=== PATIENT | male | born 1975 | race Caucasian/White ===

== ENCOUNTER 2016-11-21 11:45 | Emergency (ER) | payer OTHER ==
--- NOTE | 2016-11-21 13:15 | ED ---
General Adult HPI - General Chief complaint: Back Pain/Injury Stated complaint: BACK INJURY, [facility] Time Seen by Provider: 11/21/16 13:07 Source: patient, RN notes reviewed Mode of arrival: ambulatory Limitations: no limitations - History of Present Illness Initial comments: Patient is 41-year-old male who presents emergency room today with a chief complaint of increased back pain over the last 4 days. He admits that 4 days ago he was at work he went to lift up a 5 gallon bucket of salt up over the truck bed. States he felt a pop into his lower back. He does admit to a spinal fusion in the past of L5-S1. Patient states that he's had increased pain the last few days. States had difficulty time with any movements of bending, turning, twisting. Patient does admit that he has had difficulty ambulating due to the pain in his back when he tries to stand upright. He denies any bowel or bladder incontinence or retention. Denies any saddle anesthesia. Denies any lumbar radiculopathy. Patient does admit that he's been using ibuprofen at home with some relief the symptoms. Does admit that symptoms seem to be somewhat improved but still not getting much better. Patient denies any recent fever, chills, shortness of breath, chest pain, abdominal pain, nausea or vomiting, numbness or tingling, dysuria or hematuria, constipation or diarrhea, headaches or visual changes, or any other complaints. - Related Data Home Medications Medication Instructions Recorded Confirmed Ibuprofen [Motrin] 400 mg PO Q6HR PRN 11/21/16 11/21/16 Previous Rx's Medication Instructions Recorded Cyclobenzaprine [Flexeril] 10 mg PO TID #20 tab 11/21/16 Ibuprofen [Motrin] 600 mg PO Q6HR PRN #40 day 11/21/16 Allergies Allergy/AdvReac Type Severity Reaction Status Date / Time Penicillins Allergy Rash/Hives Verified 11/21/16 13:17 Review of Systems ROS Statement: Those systems with pertinent positive or pertinent negative responses have been documented in the HPI. ROS Other: All systems not noted in ROS Statement are negative. Past Medical History Past Medical History: No Reported History History of Any Multi-Drug Resistant Organisms: None Reported Past Surgical History: Back Surgery, Orthopedic Surgery Past Psychological History: No Psychological Hx Reported Smoking Status: Current every day smoker Past Alcohol Use History: None Reported Past Drug Use History: None Reported General Exam - General Exam Comments Initial Comments: General: The patient is awake and alert, in no distress, and does not appear acutely ill. Neck: The neck is supple, there is no tenderness or JVD. Cardiovascular: There is a regular rate and rhythm. No murmur, rub or gallop is appreciated. Respiratory: Lungs are clear to auscultation, respirations are non-labored, breath sounds are equal. No wheezes, stridor, rales, or rhonchi. Gastrointestinal: Soft, non-distended, non-tender abdomen without masses or organomegaly noted. There is no rebound or guarding present. Back: Patient does have old surgical incision in the lower lumbar. Normal appearance or step-offs deformities. No tenderness over the sinus process. Sensations intact pulses equal bilaterally 2+. Strength 5/5. Musculoskeletal: Normal ROM, no tenderness. Strength 5/5. Sensation intact. Pulses equal bilaterally 2+. Neurological: A&O x 3. CN II-XII intact, There are no obvious motor or sensory deficits. Coordination appears grossly intact. Speech is normal. Skin: Skin is warm and dry and no rashes or lesions are noted. Psychiatric: Cooperative, appropriate mood & affect, normal judgment. Limitations: no limitations Course Vital Signs 11/21/16 12:42 Temperature 98.4 F Pulse Rate 88 Respiratory 18 Rate Blood Pressure 125/65 O2 Sat by Pulse 98 Oximetry Medical Decision Making - Medical Decision Making Patient's x-ray reviewed and shows stable findings. No acute abnormalities. No bowel or bladder incontinence or retention. No saddle anesthesia. No lumbar radiculopathy. Patient is advised follow-up with his orthopedic doctor. Advised return here to the emergency room if any symptoms increase or worsen or for any other concerns. Will be continued on anti-inflammatories and given musculoskeletal as a muscle laxer mimicking drowsy. Advised return for any other concerns. Disposition Clinical Impression: Acute low back pain Disposition: HOME SELF-CARE Condition: Good Instructions: Acute Low Back Pain (ED) Additional Instructions: Please use medication as discussed. Please follow-up with orthopedics in the next 2 days of symptoms have not improved. Please return to emergency room if the symptoms increase or worsen or for any other concerns. Prescriptions: Cyclobenzaprine [Flexeril] 10 mg PO TID #20 tab Ibuprofen [Motrin] 600 mg PO Q6HR PRN #40 day PRN Reason: Pain Referrals: None,Stated [Primary Care Provider] - 1-2 days Lam Acosta DO [Doctor of Osteopathic Medicine] - 1-2 days Time of Disposition: 14:22
--- NOTE | 2016-11-21 14:06 | XR ---
Lumbar spine HISTORY: Injury, pain 3 views of the lumbar spine and 4 images Patient is status post posterior lumbar fusion of L4-L5-S1. Laminectomy changes are present at L4. An terolisthesis L5-S1 is stable, there is loss of disc height with intervertebral spacing material. [place] s of disc height also present at L4-5. Lumbar vertebral bodies show preserved height and bone mineral ization. IMPRESSION: Stable postoperative changes.
[2016-11-21 14:29] VITALS: BP 143/84; PULSE 78; RESP 16; TEMP 98
== END 2016-11-21 14:30 | disposition home or self-care (01) ==
LOC: EC 11:45
DX: M54.5 Low back pain (principal); F17.200 Nicotine dependence, unspecified, uncomplicated; Z98.1 Arthrodesis status; Z88.0 Allergy status to penicillin; X50.0XXA Overexertion from strenuous movement or load, initial encounter; Y92.69 Other specified industrial and construction area as the place of occurrence of the external cause; Y99.0 Civilian activity done for income or pay
CPT/HCPCS: 72100; 99283

== ENCOUNTER 2017-02-18 09:04 | Emergency (ER) | payer OTHER ==
[2017-02-18 09:28] VITALS: BP 150/72; PULSE 91; RESP 18; TEMP 97.3
--- NOTE | 2017-02-18 09:41 | ED ---
ENT HPI - General Chief complaint: Dental/Oral Stated complaint: BACK AND DENTAL PAIN Time Seen by Provider: 02/18/17 09:32 Source: patient, RN notes reviewed Mode of arrival: ambulatory Limitations: no limitations - History of Present Illness Initial comments: 41-year-old male presents to the emergency Department chief complaint of left- sided upper jaw pain. Patient states she's had for the last week or so. Patient states he has appointment with Dr. Hinton on Thursday for the tooth. Patient states he does have chronic poor dentition. Patient states that he just was taking Motrin at home and it was not helping with this pains without that he should be evaluated. Patient also does complain of some back pain. Patient states that he was golfing he feels as if he pulled a muscle. Patient states there is no falls or trauma to the back. Patient states that he has a history of straining the start of the back in the past. Patient states Motrin is not helping with that either soap he was concerned. Patient states there is no other symptoms at this time.Patient denies any recent fever, chills, shortness of breath, chest pain, abdominal pain, nausea vomiting, numbness or tingling, dysuria or hematuria, constipation or diarrhea, headaches or visual changes, or any other current symptoms. - Related Data Home Medications Medication Instructions Recorded Confirmed Ibuprofen [Motrin] 400 mg PO Q6HR PRN 11/21/16 11/21/16 Previous Rx's Medication Instructions Recorded Cyclobenzaprine [Flexeril] 10 mg PO TID #20 tab 11/21/16 Ibuprofen [Motrin] 600 mg PO Q6HR PRN #40 day 11/21/16 Clindamycin [Cleocin] 450 mg PO Q8HR #90 capsule 02/18/17 Hydrocodone/Acetaminophen [[place] 1 each PO Q6HR PRN #20 tab 02/18/17 5-325] Orphenadrine [Norflex] 100 mg PO Q12H #10 tablet.er 02/18/17 Allergies Allergy/AdvReac Type Severity Reaction Status Date / Time Penicillins Allergy Rash/Hives Verified 02/18/17 09:28 Review of Systems ROS Statement: Those systems with pertinent positive or pertinent negative responses have been documented in the HPI. ROS Other: All systems not noted in ROS Statement are negative. Past Medical History Past Medical History: No Reported History History of Any Multi-Drug Resistant Organisms: None Reported Past Surgical History: Back Surgery, Orthopedic Surgery Past Psychological History: No Psychological Hx Reported Smoking Status: Current every day smoker Past Alcohol Use History: None Reported Past Drug Use History: None Reported General Exam Limitations: no limitations General appearance: alert, in no apparent distress Head exam: Present: atraumatic, normocephalic, normal inspection Expanded Ear exam: Present: normal external inspection Mouth exam: Present: normal external inspection Teeth exam: Present: other (For dentition throughout multiple fractured teeth. Tenderness along the left upper jaw line.) Throat exam: normal inspection Neck exam: Present: normal inspection. Absent: tenderness, meningismus, lymphadenopathy Respiratory exam: Present: normal lung sounds bilaterally. Absent: respiratory distress, wheezes, rales, rhonchi, stridor Cardiovascular Exam: Present: regular rate, normal rhythm, normal heart sounds. Absent: systolic murmur, diastolic murmur, rubs, gallop, clicks Back exam: Present: normal inspection, full ROM. Absent: tenderness, paraspinal tenderness, vertebral tenderness Neurological exam: Present: alert, oriented X3, CN II-XII intact Psychiatric exam: Present: normal affect, normal mood Skin exam: Present: warm, dry, intact, normal color. Absent: rash Course Vital Signs 02/18/17 09:25 Temperature 97.3 F L Pulse Rate 91 Respiratory 18 Rate Blood Pressure 150/72 O2 Sat by Pulse 100 Oximetry Medical Decision Making - Medical Decision Making 41-year-old male presents for dental pain as well as lumbar strain. Patient does have poor dentition and tenderness of the left upper jaw. The patient he medication as well as antibiotics. We discussed close follow-up with his doctor and return parameters outpatient's questions. He stated he understood any significant plan. All questions have been answered. The patient will be discharged home. Disposition Clinical Impression: Lumbar strain, Odontalgia Disposition: HOME SELF-CARE Condition: Stable Instructions: Toothache (ED), Low Back Strain (ED), Lower Back Exercises (ED) Additional Instructions: Please use medication as discussed. Please follow up with family doctor if symptoms have not improved over the next two days. Please return to the emergency room if your symptoms increase or worsen or for any other concerns. [facility] [place] [address] [place] [address] [phone] (existing clients only) For new clients: [phone] 1st consult: $50 (includes Xrays) Usually 30% less then private dentist for visits after. [employer] Have to pay $50 for Xrays anmd rest is covered. [phone] Prescriptions: Clindamycin [Cleocin] 450 mg PO Q8HR #90 capsule Hydrocodone/Acetaminophen [[place] 5-325] 1 each PO Q6HR PRN #20 tab PRN Reason: Pain Orphenadrine [Norflex] 100 mg PO Q12H #10 tablet.er Referrals: Otto Evans DO [STAFF PHYSICIAN] - 1-2 days Time of Disposition: 09:40
== END 2017-02-18 09:57 | disposition home or self-care (01) ==
LOC: EC 09:04
DX: S39.012A Strain of muscle, fascia and tendon of lower back, initial encounter (principal); K08.89 Other specified disorders of teeth and supporting structures; K03.81 Cracked tooth; F17.200 Nicotine dependence, unspecified, uncomplicated; Z88.0 Allergy status to penicillin; X58.XXXA Exposure to other specified factors, initial encounter; Y93.53 Activity, golf
CPT/HCPCS: 99283

== ENCOUNTER 2017-10-28 08:02 | Emergency (ER) | payer OTHER ==
[2017-10-28 08:14] VITALS: RESP 18; TEMP 97.4
[2017-10-28] MEDS ORDERED: CLINDAMYCIN 150 MG CAP PO STA (08:40)
--- NOTE | 2017-10-28 08:40 | ED ---
ENT HPI - General Chief complaint: Dental/Oral Stated complaint: dental pain Time Seen by Provider: 10/28/17 08:17 Source: patient, RN notes reviewed, old records reviewed Mode of arrival: ambulatory Limitations: no limitations - History of Present Illness Initial comments: This patient is a 42-year-old male presenting complaint of left upper dental pain for approximately one week. He reports that he has history of poor dentition and is going to [facility] to have his teeth removed. He reports that he's had no fever or chills. Denies any trismus. He reports that he is noticed some swelling over the left upper cheek. He reports that he has no difficulty breathing, or lower jaw swelling. Patient states that he has not been on any recent antibiotics. He's been taking Motrin and naproxen for pain. - Related Data Home Medications Medication Instructions Recorded Confirmed Ibuprofen [Motrin] 400 mg PO Q6HR PRN 11/21/16 11/21/16 Previous Rx's Medication Instructions Recorded Cyclobenzaprine [Flexeril] 10 mg PO TID #20 tab 11/21/16 Ibuprofen [Motrin] 600 mg PO Q6HR PRN #40 day 11/21/16 Clindamycin [Cleocin] 450 mg PO Q8HR #90 capsule 02/18/17 Hydrocodone/Acetaminophen [[place] 1 each PO Q6HR PRN #20 tab 02/18/17 5-325] Orphenadrine [Norflex] 100 mg PO Q12H #10 tablet.er 02/18/17 Acetaminophen-Codeine 300-30mg 1 tab PO Q6H PRN #20 tablet 10/28/17 [Tylenol #3] Clindamycin [Cleocin] 450 mg PO TID 7 Days capsule 10/28/17 Allergies Allergy/AdvReac Type Severity Reaction Status Date / Time Penicillins Allergy Rash/Hives Verified 10/28/17 08:13 Review of Systems ROS Statement: Those systems with pertinent positive or pertinent negative responses have been documented in the HPI. ROS Other: All systems not noted in ROS Statement are negative. Past Medical History Past Medical History: No Reported History History of Any Multi-Drug Resistant Organisms: None Reported Past Surgical History: Back Surgery, Orthopedic Surgery Past Psychological History: No Psychological Hx Reported Smoking Status: Current every day smoker Past Alcohol Use History: None Reported Past Drug Use History: None Reported General Exam - General Exam Comments Initial Comments: 42-year-old male. No acute distress. Limitations: no limitations General appearance: alert, in no apparent distress Head exam: Present: atraumatic, normocephalic, normal inspection Eye exam: Present: normal appearance, PERRL, EOMI. Absent: scleral icterus, conjunctival injection, periorbital swelling ENT exam: Present: normal exam, mucous membranes moist, other (Patient is very poor dentition. Patient has evidence of gingival swelling and irritation over molars 1415 and 13.) Neck exam: Present: normal inspection. Absent: tenderness, meningismus, lymphadenopathy Respiratory exam: Present: normal lung sounds bilaterally. Absent: respiratory distress, wheezes, rales, rhonchi, stridor Cardiovascular Exam: Present: regular rate, normal rhythm, normal heart sounds. Absent: systolic murmur, diastolic murmur, rubs, gallop, clicks Neurological exam: Present: alert, oriented X3, CN II-XII intact Psychiatric exam: Present: normal affect Skin exam: Present: warm, dry, intact, normal color. Absent: rash Course Vital Signs 10/28/17 08:12 Temperature 97.4 F L Pulse Rate 96 Respiratory 18 Rate Blood Pressure 137/80 O2 Sat by Pulse 100 Oximetry Medical Decision Making - Medical Decision Making Patient 42-year-old male chief complaint of left upper dental pain for approximately one week. It does appear the patient has residual irritation, no focal abscess noted at this time. However there is significant swelling over the cheek. He has had multiple dental caries within all of his teeth, but appears to be impacted and gum swelling over the molars and 13 1415. Patient will be started on Pen-Vee K and pain medicine. Discussed following up with dental clinic. Patient understands treatment plan will comply. Return parameters were discussed. Disposition Clinical Impression: Pain, dental, Dental infection Disposition: HOME SELF-CARE Condition: Good Instructions: Dental Abscess (ED) Additional Instructions: Patient advised to take the pain medicine and antibiotics as prescribed. Follow -up with dental clinic. Return to the emergency department if any alarming signs or symptoms occur. [facility] [address] [place] [address] [phone] (existing clients only) For new clients: [phone] 1st consult: $50 (includes Xrays) Usually 30% less then private dentist for visits after. [employer] Have to pay $50 for Xrays anmd rest is covered. [phone] Prescriptions: Acetaminophen-Codeine 300-30mg [Tylenol #3] 1 tab PO Q6H PRN #20 tablet PRN Reason: Pain Clindamycin [Cleocin] 450 mg PO TID 7 Days capsule Referrals: Ronnie Garcia Jr, [Primary Care Provider] - 1-2 days Time of Disposition: 08:38
[2017-10-28 08:57] VITALS: BP 132/69; PULSE 81
== END 2017-10-28 08:57 | disposition home or self-care (01) ==
LOC: EC 08:02
DX: K04.7 Periapical abscess without sinus (principal); F17.200 Nicotine dependence, unspecified, uncomplicated; Z88.0 Allergy status to penicillin
CPT/HCPCS: 99283

== ENCOUNTER 2020-07-13 08:47 | Emergency (ER) | payer OTHER ==
[2020-07-13 08:53] VITALS: BP 131/84; PULSE 88; RESP 18; TEMP 98
--- NOTE | 2020-07-13 09:20 | ED ---
Back Pain HPI - General Chief Complaint: Back Pain/Injury Stated Complaint: Back Pain Time Seen by Provider: 07/13/20 08:54 Source: patient, RN notes reviewed Limitations: no limitations - History of Present Illness Initial Comments: This a 45-year-old male presents emergency Department chief complaint of mid to lower back pain. Patient states this started at work yesterday states that he lifted up his lawn more bagged empty it and states that he felt a strain. Patient states he has a history of lumbar back issues in which she had surgery by Dr. Justin hooks 15 years ago patient denies any bowel bladder incontinence or retention or saddle anesthesias or lower shunted paresthesias. No difficulty walking but states it does increase his pain. Patient states that he twisted to his left. Patient took some ibuprofen and Aleve with no relief of the symptoms. - Related Data Home Medications Medication Instructions Recorded Confirmed Ibuprofen [Motrin] 400 mg PO Q6HR PRN 11/21/16 10/28/17 Previous Rx's Medication Instructions Recorded Acetaminophen-Codeine 300-30mg 1 tab PO Q6H PRN #20 tablet 10/28/17 [Tylenol #3] Clindamycin [Cleocin] 450 mg PO TID 7 Days capsule 10/28/17 Ibuprofen [Motrin] 600 mg PO Q8HR PRN #20 tab 07/13/20 Orphenadrine [Norflex] 100 mg PO Q12H #14 tablet.er 07/13/20 predniSONE 50 mg PO DAILY #5 tab 07/13/20 Allergies Allergy/AdvReac Type Severity Reaction Status Date / Time Penicillins Allergy Rash/Hives Verified 07/13/20 08:53 Review of Systems ROS Statement: Those systems with pertinent positive or pertinent negative responses have been documented in the HPI. ROS Other: All systems not noted in ROS Statement are negative. Past Medical History Past Medical History: No Reported History History of Any Multi-Drug Resistant Organisms: None Reported Past Surgical History: Back Surgery, Orthopedic Surgery Past Psychological History: No Psychological Hx Reported Smoking Status: Current every day smoker Past Alcohol Use History: None Reported Past Drug Use History: None Reported General Exam Limitations: no limitations General appearance: alert, in no apparent distress Head exam: Present: atraumatic, normocephalic, normal inspection Eye exam: Present: normal appearance, PERRL, EOMI. Absent: scleral icterus, conjunctival injection, periorbital swelling ENT exam: Present: normal exam, normal oropharynx, mucous membranes moist Neck exam: Present: normal inspection, full ROM. Absent: tenderness, meningismus, lymphadenopathy Respiratory exam: Present: normal lung sounds bilaterally. Absent: respiratory distress, wheezes, rales, rhonchi, stridor Cardiovascular Exam: Present: regular rate, normal rhythm, normal heart sounds. Absent: systolic murmur, diastolic murmur, rubs, gallop, clicks GI/Abdominal exam: Present: soft, normal bowel sounds. Absent: distended, tenderness, guarding, rebound, rigid Extremities exam: Present: normal inspection, full ROM, normal capillary refill, other (Lower extremity strength equal bilaterally, neurovascular intact equal: Equal warmth). Absent: tenderness, pedal edema, joint swelling, calf tenderness Back exam: Present: full ROM (Patient does have full range of motion reports moderate discomfort), tenderness (Mid to lower thoracic vertebral and paraspinal), muscle spasm, paraspinal tenderness, vertebral tenderness. Absent: CVA tenderness (R), CVA tenderness (L) Neurological exam: Present: alert, oriented X3, normal gait (Patient ambulated in the room), reflexes normal. Absent: motor sensory deficit Skin exam: Present: warm, dry, intact, normal color. Absent: rash Course Vital Signs 07/13/20 08:48 Temperature 98.0 F Pulse Rate 88 Respiratory 18 Rate Blood Pressure 131/84 O2 Sat by Pulse 98 Oximetry Medical Decision Making - Medical Decision Making 45-year-old male presented for thoracic back pain x-rays unremarkable. Patient has no red flag symptoms. Patient's symptoms are consistent with a thoracic strain. Conservative treatment will be initiated patient will have close follow-up and return parameters were discussed. Disposition Clinical Impression: Thoracic back pain, Back strain Disposition: HOME SELF-CARE Condition: Stable Instructions (If sedation given, give patient instructions): Thoracic Back Strain (ED) Additional Instructions: Please return to the Emergency Department if symptoms worsen or any other concerns. Prescriptions: Ibuprofen [Motrin] 600 mg PO Q8HR PRN #20 tab PRN Reason: Pain Orphenadrine [Norflex] 100 mg PO Q12H #14 tablet.er predniSONE 50 mg PO DAILY #5 tab Is patient prescribed a controlled substance at d/c from ED?: No Referrals: Ronnie Garcia Jr, [Primary Care Provider] - 1-2 days Lam Acosta DO [Doctor of Osteopathic Medicine] - 1-2 days Time of Disposition: 09:51
--- NOTE | 2020-07-13 09:28 | XR ---
Thoracic spine HISTORY: Pain 4 views of the thoracic spine Thoracic vertebral bodies show preserved height, near anatomic alignment, and bone mineralization is normal. Mild spinal curvature could be positional. Disc spaces are maintained. No paraspinal mass. 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 IMPRESSION: No fracture or subluxation.
[2020-07-13] MEDS ORDERED: ACET/COD 300 MG/30 MG STARTER PACK 6 TAB BTL PO STA (09:51)
== END 2020-07-13 10:15 | disposition home or self-care (01) ==
LOC: EC 08:47
DX: S39.012A Strain of muscle, fascia and tendon of lower back, initial encounter (principal); M54.6 Pain in thoracic spine; F17.200 Nicotine dependence, unspecified, uncomplicated; Z88.0 Allergy status to penicillin; X50.0XXA Overexertion from strenuous movement or load, initial encounter; Y92.69 Other specified industrial and construction area as the place of occurrence of the external cause; Y99.0 Civilian activity done for income or pay
CPT/HCPCS: 72070; 99283

== ENCOUNTER 2020-11-19 20:45 | Emergency (ER) | payer OTHER ==
[2020-11-19 21:00] VITALS: RESP 18; TEMP 97.9
[2020-11-19] MEDS ORDERED: ACETAMINOPHEN TAB 325 MG TAB PO STA (21:32)
--- NOTE | 2020-11-19 21:36 | ED ---
General Adult HPI - General Chief complaint: Abdominal Pain Stated complaint: Abdominal Pain Time Seen by Provider: 11/19/20 21:15 Source: patient, RN notes reviewed Mode of arrival: ambulatory Limitations: no limitations - History of Present Illness Initial comments: Patient is a 45-year-old male that presents to emergency room with right testicle pain. He noted it spent on and off for last 4 days were comes and goes. He noted that the pain currently is a 9 out of 10 with no relief from Motrin at home. He notes that the pain isn't produced by any certain movement or body position it is comes and goes. She denied any sexual activity with any new partners, he is in a monogamous relationship and is faithful to his . She denied any nausea vomiting diarrhea constipation fever fatigue chills dysuria blood in his urine, discharge. - Related Data Home Medications Medication Instructions Recorded Confirmed Buprenorphine HCl/Naloxone HCl 0.5 - 1 film SUBLINGUAL BID 11/19/20 11/19/20 [Suboxone 8 mg-2 mg Sl Film] Allergies Allergy/AdvReac Type Severity Reaction Status Date / Time Penicillins Allergy Rash/Hives Verified 11/19/20 22:14 Review of Systems ROS Statement: Those systems with pertinent positive or pertinent negative responses have been documented in the HPI. ROS Other: All systems not noted in ROS Statement are negative. Past Medical History Past Medical History: No Reported History History of Any Multi-Drug Resistant Organisms: None Reported Past Surgical History: Back Surgery, Orthopedic Surgery Past Psychological History: No Psychological Hx Reported Smoking Status: Current every day smoker Past Alcohol Use History: None Reported Past Drug Use History: None Reported General Exam Limitations: no limitations General appearance: alert, in no apparent distress Head exam: Present: atraumatic, normocephalic, normal inspection Eye exam: Present: normal appearance, PERRL, EOMI. Absent: scleral icterus, conjunctival injection, periorbital swelling ENT exam: Present: normal exam, mucous membranes moist Neck exam: Present: normal inspection. Absent: tenderness, meningismus, lymphadenopathy Respiratory exam: Present: normal lung sounds bilaterally. Absent: respiratory distress, wheezes, rales, rhonchi, stridor Cardiovascular Exam: Present: regular rate, normal rhythm, normal heart sounds. Absent: systolic murmur, diastolic murmur, rubs, gallop, clicks GI/Abdominal exam: Present: soft, normal bowel sounds. Absent: distended, tenderness, guarding, rebound, rigid exam: Present: normal inspection, testicular tenderness (Right testicle), circumcision. Absent: urethral discharge, scrotal swelling Extremities exam: Present: normal inspection, full ROM, normal capillary refill. Absent: tenderness, pedal edema, joint swelling, calf tenderness Neurological exam: Present: alert, oriented X3, CN II-XII intact Psychiatric exam: Present: normal affect, normal mood Skin exam: Present: warm, dry, intact, normal color. Absent: rash Course Vital Signs 11/19/20 20:58 Temperature 97.9 F Pulse Rate 82 Respiratory 18 Rate Blood Pressure 132/80 O2 Sat by Pulse 97 Oximetry Medical Decision Making - Medical Decision Making 45-year-old male complaining of right testicle pain. Skull ultrasound, 650 mg of Tylenol, and urinalysis ordered. Ultrasound negative for any acute process, did show bilateral hydrocele and a small left-sided varicocele. Case discussed with Dr. Robles, patient discharged home with follow-up to urologist. - Lab Data Lab Results 11/19/20 Range/Units 21:47 Urine Color Light Yellow Urine Appearance Clear (Clear) Urine pH 7.0 (5.0-8.0) Ur Specific [place] 1.012 (1.001-1.035) Urine Protein Negative (Negative) Urine Glucose (UA) Negative (Negative) Urine Ketones Negative (Negative) Urine Blood Negative (Negative) Urine Nitrite Negative (Negative) Urine Bilirubin Negative (Negative) Urine Urobilinogen <2.0 (<2.0) mg/dL Ur Leukocyte Esterase Negative (Negative) - Radiology Data Radiology results: report reviewed, image reviewed Presents of hydroceles: Right measures 1.61.50.7 cm, left measures 1.00.62.2 cm's. Presence of varicoceles: Vessels measure up to 2 mm on the left side. There are bilateral hydroceles. There is right-sided small epididymal cyst. No evidence of testicular torsion or mass. Disposition Clinical Impression: Hydrocele in adult, Varicocele Disposition: HOME SELF-CARE Condition: Stable Instructions (If sedation given, give patient instructions): Hydrocele (ED), Testicle Pain (ED) Additional Instructions: Please return to the Emergency Department if symptoms worsen or any other concerns. Follow-up with urology in 2-4 days Follow-up with primary care in 3-5 days. [id number] pain medication for symptom control. Is patient prescribed a controlled substance at d/c from ED?: No Referrals: Ronnie Garcia Jr, DO [Primary Care Provider] - 1-2 days Deonte Leach MD [STAFF PHYSICIAN] - 1-2 days Time of Disposition: 22:54
[2020-11-19 22:12] LABS: Appearance,Urine Clear (Clear); Bilirubin,Urine Negative (Negative); Blood,Urine Negative (Negative); Color,Urine Light Yellow; Glucose,Urine (UA) Negative (Negative); Ketones,Urine Negative (Negative); Leukocyte Esterase,Urine Negative (Negative); Nitrite,Urine Negative (Negative); Protein,Urine Negative (Negative); Specific Gravity,Urine 1.012 (1.001-1.035); Urobilinogen,Urine <2.0 mg/dL (<2.0)
--- NOTE | 2020-11-19 22:42 | US ---
EXAMINATION TYPE: US scrotum with doppler. Grayscale and color Doppler Duplex imaging performed of adriane burnett scrotum. DATE OF EXAM: 11/19/2020 COMPARISON: NONE CLINICAL HISTORY: Right testicle pain. Right testicular pain x 4 days. EXAM MEASUREMENTS: TESTICLES: Right Testicle: 5.1 x 2.9 x 2.5 cm Left Testicle: 5.3 x 3.0 x 2.8 cm EPIDIDYMIS HEAD: Right Epididymis: 1.2 x 1.1 x 1.2 cm Left Epididymis: 0.9 x 1.9 x 1.5 cm Anechoic area seen in right epididymal head: 0.4 x 0.3 x 0.4 cm. Right epididymis appears heterogeneo us. Left epididymis appears slightly heterogeneous. Doppler performed to assess for testicular vascularity; bilateral color flow and waveforms are seen. Presence of hydroceles: Right measures 1.6 x 1.5 x 0.7 cm. Left measures 1.0 x 0.6 x 2.2 cm. Presence of varicoceles: Vessels measure up to 2 mm on left side. IMPRESSION: There are mild bilateral hydroceles. There is right-sided small epididymal cyst. No evidence of testi cular torsion or mass.
[2020-11-19 23:05] VITALS: BP 128/82; PULSE 77
== END 2020-11-19 23:05 | disposition home or self-care (01) ==
LOC: EC 20:45
DX: N43.3 Hydrocele, unspecified (principal); I86.1 Scrotal varices; F17.200 Nicotine dependence, unspecified, uncomplicated
CPT/HCPCS: 76870; 81003; 93975; 99284

== ENCOUNTER 2023-07-14 00:40 | Inpatient (IN) | payer BC, MEDICAID, OTHER ==
--- NOTE | 2023-07-14 01:03 | ED ---
Psych HPI - General Source: patient, RN notes reviewed Mode of arrival: ambulatory Limitations: no limitations <Carlos Enrique Sood - Last Filed: 07/14/23 01:02> <Daniel Carbone - Last Filed: 07/14/23 15:38> - General Chief Complaint: Psychiatric Symptoms Stated Complaint: Mental health Time Seen by Provider: 07/14/23 00:48 - History of Present Illness Initial Comments: 48-year-old male presents emergency Department with chief complaint of depression, suicidal ideation. Patient states that this has been increasing recently. Patient states he does not have current plan to harm himself. His eyes any prior suicide attempts. Patient is currently on Suboxone but denies any illicit drug use, patient denies any occult abuse has no physical complaints. (Carlos Enrique Sood) - Related Data Home Medications Medication Instructions Recorded Confirmed Buprenorphine HCl/Naloxone HCl 1 film SUBLINGUAL DIRECTED PRN 11/19/20 07/14/23 [Suboxone 8 mg-2 mg Sl Film] Allergies Allergy/AdvReac Type Severity Reaction Status Date / Time Penicillins Allergy Rash/Hives Verified 07/14/23 15:20 Review of Systems ROS Other: All systems not noted in ROS Statement are negative. <Carlos Enrique Sood - Last Filed: 07/14/23 01:02> ROS Other: All systems not noted in ROS Statement are negative. <Daniel Carbone - Last Filed: 07/14/23 15:38> ROS Statement: Those systems with pertinent positive or pertinent negative responses have been documented in the HPI. Past Medical History Past Medical History: No Reported History History of Any Multi-Drug Resistant Organisms: None Reported Past Surgical History: Back Surgery, Orthopedic Surgery Past Psychological History: No Psychological Hx Reported Smoking Status: Current every day smoker Past Alcohol Use History: None Reported Past Drug Use History: None Reported <Carlos Enrique Sood - Last Filed: 07/14/23 01:02> General Exam Limitations: no limitations General appearance: alert, in no apparent distress Head exam: Present: atraumatic, normocephalic, normal inspection Eye exam: Present: normal appearance, PERRL, EOMI. Absent: scleral icterus, conjunctival injection, periorbital swelling ENT exam: Present: normal exam, normal oropharynx, mucous membranes moist Neck exam: Present: normal inspection, full ROM. Absent: tenderness, meningismus, lymphadenopathy Respiratory exam: Present: normal lung sounds bilaterally. Absent: respiratory distress, wheezes, rales, rhonchi, stridor Cardiovascular Exam: Present: regular rate, normal rhythm, normal heart sounds. Absent: systolic murmur, diastolic murmur, rubs, gallop, clicks GI/Abdominal exam: Present: soft, normal bowel sounds. Absent: distended, tenderness, guarding, rebound, rigid Neurological exam: Present: alert, oriented X3 Psychiatric exam: Present: depressed, flat affect Skin exam: Present: warm, dry, intact, normal color. Absent: rash <Carlos Enrique Sood - Last Filed: 07/14/23 01:02> Course Vital Signs 07/14/23 07/14/23 00:44 14:04 Temperature 97.7 F Pulse Rate 92 75 Respiratory 18 16 Rate Blood Pressure 112/66 106/55 O2 Sat by Pulse 98 97 Oximetry Medical Decision Making <Daniel Carbone - Last Filed: 07/14/23 15:38> - Medical Decision Making Was pt. sent in by a medical professional or institution ([facility] Agrawal, [facility], urgent care, hospital, or care home...) When possible be specific @ -No Did you speak to anyone other than the patient for history (EMS, parent, family, police, friend...)? What history was obtained from this source @ -No Did you review nursing and triage notes (agree or disagree)? Why? @ -I reviewed and agree with nursing and triage notes Were old charts reviewed (outside hosp., previous admission, EMS record, old EKG, old radiological studies, urgent care reports/EKG's, care home records)? Report findings @ -No old charts were reviewed Differential Diagnosis (chest pain, altered mental status, abdominal pain women, abdominal pain men, vaginal bleeding, weakness, fever, dyspnea, syncope, headache, dizziness, GI bleed, back pain, seizure, CVA, palpatations, mental health, musculoskeletal)? @ -Differential Mental Health Depression, anxiety, bipolar, psychosis, schizophrenia, borderline personality, situational depression, adjustment disorder, behavioral disorder, brain tumor, malingering, substance abuse, encephalopathy, medication reaction, dementia, hypothyroidism, degenerative neurologic disorder, lupus.... This is not meant to be all-inclusive list EKG interpreted by me (3pts min.). @ -As above X-rays interpreted by me (1pt min.). @ -None done CT interpreted by me (1pt min.). @ -None done U/S interpreted by me (1pt. min.). @ -None done What testing was considered but not performed or refused? (CT, X-rays, U/S, labs)? Why? @ -None What meds were considered but not given or refused? Why? @ -None Did you discuss the management of the patient with other professionals (professionals i.e. , PA, [facility] [employer], lab, RT, psych nurse, social contact worker, funeral home general manager, teacher, hearing officer, piano case and bench assembler)? Give summary @ -Case was discussed with mental health nurse Yola with plans for admission Was smoking cessation discussed for >3mins.? @ -No Was critical care preformed (if so, how long)? @ -No Were there social determinants of health that impacted care today? How? (Homelessness, low income, unemployed, alcoholism, drug addiction, transportation, low edu. Level, literacy, decrease access to med. care, group home, rehab)? @ -No Was there de-escalation of care discussed even if they declined (Discuss DNR or withdrawal of care, Hospice)? DNR status @ -No What co-morbidities impacted this encounter? (DM, HTN, Smoking, COPD, CAD, Cancer, CVA, ARF, Chemo, Hep., AIDS, mental health diagnosis, sleep apnea, morbid obesity)? @ -None Was patient admitted / discharged? Hospital course, mention meds given and route, prescriptions, significant lab abnormalities, going to OR and other pertinent info. @ -Patient reevaluated by myself. Patient amiss to be depressed with suicidal thoughts. Patient has not been sleeping well. Patient will be admitted for mental health care. Patient currently is not on any medications for depression. Undiagnosed new problem with uncertain prognosis? @ -No Drug Therapy requiring intensive monitoring for toxicity (Heparin, Nitro, Insulin, Cardizem)? @ -No Were any procedures done? @ -No Diagnosis/symptom? @ -Depression Acute, or Chronic, or Acute on Chronic? @ -Acute Uncomplicated (without systemic symptoms) or Complicated (systemic symptoms)? @ -default Side effects of treatment? @ -No Exacerbation, Progression, or Severe Exacerbation? @ -No Poses a threat to life or bodily function? How? (Chest pain, USA, ME, pneumonia, PE, COPD, DKA, ARF, appy, cholecystitis, CVA, Diverticulitis, Homicidal, Suicidal, threat to staff... and all critical care pts) @ -No (Daniel Carbone) - Lab Data Lab Results 07/14/23 Range/Units 01:23 Urine Opiates Screen Not Detected (NotDetected) Ur Oxycodone Screen Not Detected (NotDetected) Urine Methadone Screen Not Detected (NotDetected) Ur Propoxyphene Screen Not Detected (NotDetected) Ur Barbiturates Screen Not Detected (NotDetected) U Tricyclic Antidepress Not Detected (NotDetected) Ur Phencyclidine Scrn Not Detected (NotDetected) Ur Amphetamines Screen Detected H (NotDetected) U Methamphetamines Scrn Detected H (NotDetected) U Benzodiazepines Scrn Not Detected (NotDetected) Urine Cocaine Screen Not Detected (NotDetected) U Marijuana (THC) Screen Not Detected (NotDetected) Disposition <Carlos Enrique Sood - Last Filed: 07/14/23 01:02> Is patient prescribed a controlled substance at d/c from ED?: No Time of Disposition: 15:38 <Daniel Carbone - Last Filed: 07/14/23 15:38> Clinical Impression: Depression Disposition: TRANSFER TO PSYCH HOSP/UNIT Referrals: None,Stated [Primary Care Provider] - 1-2 days
[2023-07-14 01:46] LABS: Cocaine Screen,Urine Not Detected (NotDetected); Phencyclidine Screen,Urine Not Detected (NotDetected); Urn Cannabinoid Scrn Not Detected (NotDetected)
[2023-07-14 01:47] LABS: Amphetamine Screen,Urine Detected (NotDetected); Barbiturate Screen,Urine Not Detected (NotDetected); Benzodiazepines Screen,Urine Not Detected (NotDetected); Methadone Screen, Urine Not Detected (NotDetected); Opiate Screen,Urine Not Detected (NotDetected); Oxycodone Screen, Urine Not Detected (NotDetected); Tricyclic Antidepressant,Urine Not Detected (NotDetected)
[2023-07-14] MEDS ORDERED: MAGNESIUM HYDROXIDE 2,400 MG/30 ML CUP PO PRN (20:20)
[2023-07-14] MEDS ORDERED: HALOPERIDOL LACTATE 5 MG/ML 1 ML VIAL IM PRN (20:20)
[2023-07-14] MEDS ORDERED: LORazepam 1 MG TAB PO PRN (20:20)
[2023-07-14] MEDS ORDERED: IBUPROFEN 600 MG TAB PO PRN (20:20)
[2023-07-14] MEDS ORDERED: ACETAMINOPHEN TAB 325 MG TAB PO PRN (20:20)
[2023-07-14] MEDS ORDERED: LORazepam 2 MG/ML INJ IM PRN (20:20)
[2023-07-14] MEDS ORDERED: haloperidoL 5 MG TAB PO PRN (20:20)
[2023-07-14] MEDS ORDERED: MAG HYDROX/AL HYDROX/SIMETH 30 ML CUP PO PRN (20:20)
--- NOTE | 2023-07-15 00:58 | P.CONS ---
History of Present Illness - Reason for Consult Consult date: 07/15/23 - History of Present Illness The patient is a 48-year-old male with a PMH of polysubstance abuse and tobacco abuse who presents to the emergency room with complaints of depression and suicidal ideation. The patient was admitted to the mental health unit where he was seen and evaluated. Patient reports that he has been struggling with his mental health ever since his recent divorce. He has been living in his truck and was contemplating suicide. He reports smoking three-quarter packs of cigarettes daily. Denied any alcohol use. Reports a long-standing history of substance use but that he has been sober for the past several months. Denied any physical complaints at the time of interview. Denied experiencing chest discomfort, shortness of breath, fever, chills, cough, nausea, vomiting, abdominal pain, diarrhea. The patient's urine toxicology however was positive for methamphetamines. Review of systems: Pertinent positives and negatives as discussed in HPI, a complete review of systems was performed and all other systems are negative. Physical examination: General: non toxic, no distress, appears at stated age, normal weight Derm: no unusual rashes/lesions, no unusual ecchymoses, warm, dry Head: atraumatic, normocephalic, symmetric Eyes: EOMI, no lid lag, anicteric sclera ENT: Nose and ears atraumatic, no thrush, no pharyngeal erythema Neck: trachea midline, supple Mouth: no lip lesion, mucus membranes moist Cardiovascular: S1S2 reg, no murmur, no edema Lungs: CTA bilateral, no rhonchi, no rales , no accessory muscle use Abdominal: soft, nontender to palpation, no guarding Ext: no gross muscle atrophy, no contractures, Neuro: No gross focal neuro deficits noted Psych: Alert, oriented, appropriate affect Assessment: Methamphetamine abuse Depression and suicidal ideation Tobacco abuse Imaging: None performed Data Review: Urine tox positive for methamphetamine and amphetamines with coronavirus PCR negative Plan: Advised on the importance of cessation from substance use Defer management of depression and suicidal ideation to the primary psychiatry service Thank you for allowing us to participate in the care of this patient. We will follow peripherally. Do not hesitate to contact us with questions. Someone can be reached from the [facility] hospitalist group at all hours of the day at [phone]. Past Medical History Past Medical History: No Reported History History of Any Multi-Drug Resistant Organisms: None Reported Past Surgical History: Back Surgery, Orthopedic Surgery Past Psychological History: No Psychological Hx Reported Smoking Status: Current every day smoker Past Alcohol Use History: None Reported Past Drug Use History: Methamphetamine, Prescription Drug Abuse Additional Drug Use History / Comment(s): pt reports that he became addicted to prescribed pain medications following his back surgery. pt states that he is currently taking Suboxone and that it is prescribed to him; pt has not had Suboxone filled since 2020. pt also reports that he smoked methamphetamine recently. pt states that he smoked a "bubble" a few days ago and that he uses "once every couple of weeks." Medications and Allergies Home Medications Medication Instructions Recorded Confirmed Type Buprenorphine HCl/Naloxone HCl 1 film SUBLINGUAL DIRECTED PRN 11/19/20 07/14/23 History [Suboxone 8 mg-2 mg Sl Film] Allergies Allergy/AdvReac Type Severity Reaction Status Date / Time Penicillins Allergy Rash/Hives Verified 07/14/23 15:20 Physical Exam Vitals: Vital Signs Temp Pulse Pulse Resp BP BP Pulse Ox 07/14/23 20:41 98.0 F 56 L 14 123/69 98 07/14/23 14:04 75 16 106/55 97 Intake and Output 07/14/23 07/14/23 07/15/23 14:59 22:59 06:59 Other: Weight 63.049 kg Results Labs: Abnormal Lab Results - Last 24 Hours (Table) 07/14/23 Range/Units 01:23 Ur Amphetamines Screen Detected H (NotDetected) U Methamphetamines Scrn Detected H (NotDetected)
[2023-07-15] MEDS: NICOTINE 14MG/24HR PATCH TRANSDERM SCH ×2 (10:07→16:54)
[2023-07-15 13:18] LABS: Anisocytosis Slight; Basophils % (A) 0 %; Eosinophils # (A) 0.2 k/uL (0-0.7); Eosinophils % (A) 3 %; HCT 46.5 % (39.0-53.0); HGB 15.2 gm/dL (13.0-17.5); Lymphocytes # (A) 1.5 k/uL (1.0-4.8); Lymphocytes % (A) 18 %; MCH 27.6 pg (25.0-35.0); MCHC 32.7 g/dL (31.0-37.0); MCV 84.3 fL (80.0-100.0); Mean Platelet Volume 7.2; Monocytes # (A) 0.3 k/uL (0-1.0); Monocytes % (A) 4 %; Neutrophils # (A) 6.4 k/uL (1.3-7.7); Neutrophils % (A) 75 %; Platelet Count 394 k/uL (150-450); RBC 5.52 m/uL (4.30-5.90); WBC 8.6 k/uL (3.8-10.6)
[2023-07-15 13:34] LABS: ALT 19 U/L (4-49); AST 23 U/L (17-59); African American GFR (CKD) >90 (>60 ml/min/1.73 sqM); Albumin 4.3 g/dL (3.5-5.0); Alkaline Phosphatase 48 U/L (38-126); Anion Gap 8 mmol/L; Blood Urea Nitrogen 10 mg/dL (9-20); Calcium 9.6 mg/dL (8.4-10.2); Carbon Dioxide 25 mmol/L (22-30); Chloride 105 mmol/L (98-107); Glucose 91 mg/dL (74-99); Non-African American GFR(CKD) >90 (>60 ml/min/1.73 sqM); Potassium 4.5 mmol/L (3.5-5.1); Sodium 138 mmol/L (137-145); Total Bilirubin 1.1 mg/dL (0.2-1.3); Total Protein 6.8 g/dL (6.3-8.2)
--- NOTE | 2023-07-15 14:24 | P.HP ---
Psychiatric H&P - . H&P Date: 07/15/23 History & Physical: Allergies Allergy/AdvReac Type Severity Reaction Status Date / Time Penicillins Allergy Rash/Hives Verified 07/14/23 15:20 Vital Signs Temp 98.0 F 07/14/23 20:41 Pulse 56 L 07/14/23 20:41 Resp 14 07/14/23 20:41 BP 123/69 07/14/23 20:41 Pulse Ox 98 07/14/23 20:41 FiO2 Intake & Output 07/14/23 07/15/23 07/15/23 18:59 06:59 18:59 Weight 63.049 kg Laboratory Last Values WBC 8.6 k/uL (3.8-10.6) 07/15/23 12:49 RBC 5.52 m/uL (4.30-5.90) 07/15/23 12:49 Hgb 15.2 gm/dL (13.0-17.5) 07/15/23 12:49 Hct 46.5 % (39.0-53.0) 07/15/23 12:49 MCV 84.3 fL (80.0-100.0) 07/15/23 12:49 MCH 27.6 pg (25.0-35.0) 07/15/23 12:49 MCHC 32.7 g/dL (31.0-37.0) 07/15/23 12:49 RDW 17.0 % (11.5-15.5) H 07/15/23 12:49 Plt Count 394 k/uL (150-450) 07/15/23 12:49 MPV 7.2 07/15/23 12:49 Neutrophils % 75 % 07/15/23 12:49 Lymphocytes % 18 % 07/15/23 12:49 Monocytes % 4 % 07/15/23 12:49 Eosinophils % 3 % 07/15/23 12:49 Basophils % 0 % 07/15/23 12:49 Neutrophils # 6.4 k/uL (1.3-7.7) 07/15/23 12:49 Lymphocytes # 1.5 k/uL (1.0-4.8) 07/15/23 12:49 Monocytes # 0.3 k/uL (0-1.0) 07/15/23 12:49 Eosinophils # 0.2 k/uL (0-0.7) 07/15/23 12:49 Basophils # 0.0 k/uL (0-0.2) 07/15/23 12:49 Anisocytosis Slight 07/15/23 12:49 Urine Opiates Screen Not Detected (NotDetected) 07/14/23 01:23 Ur Oxycodone Screen Not Detected (NotDetected) 07/14/23 01:23 Urine Methadone Screen Not Detected (NotDetected) 07/14/23 01:23 Ur Propoxyphene Screen Not Detected (NotDetected) 07/14/23 01:23 Ur Barbiturates Screen Not Detected (NotDetected) 07/14/23 01:23 U Tricyclic Antidepress Not Detected (NotDetected) 07/14/23 01:23 Ur Phencyclidine Scrn Not Detected (NotDetected) 07/14/23 01:23 Ur Amphetamines Screen Detected (NotDetected) H 07/14/23 01:23 U Methamphetamines Scrn Detected (NotDetected) H 07/14/23 01:23 U Benzodiazepines Scrn Not Detected (NotDetected) 07/14/23 01:23 Urine Cocaine Screen Not Detected (NotDetected) 07/14/23 01:23 U Marijuana (THC) Screen Not Detected (NotDetected) 07/14/23 01:23 Coronavirus (PCR) Not Detected (Not Detectd) 07/14/23 17:27 07/15/23 13:28 IDENTIFYING DATA: Patient is a 48-year-old male, currently living at his mom's house, he is currently , 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 HPI: Patient presented to the hospital on 03/17 complaining of depression and increasing suicidal thoughts, no plan. Patient has a history of prior suicide attempts. He is currently on Suboxone. Urine drug screen is positive for amphetamines and methamphetamine. Patient was seen today laying in his bed and agreeable to be brighter. He could have a constricted affect, states a feeling depressed and anxious. He claims that he told his that he was feeling suicidal, did not endorse a plan. He states that he has been from his , and has been fairly stressful for him. He states that they are in good terms and try to coparent their 2 kids. He states that his mother recently about 2 weeks ago from lung cancer, he still grieving from this. He states that she fairly suddenly and did not have much treatment. He states that "this is beating me up inside". He claims that the separation is affecting him more he believes. He claims that he has been feeling depressed for the past several months now, states that his sleep has been poor appetite is fair. Patient denies any current suicidal or homicidal ideations intent or plan. At this time patient denies any auditory or visual hallucinations. Patient denies any flight of ideas racing thoughts and increased in goal directed behavior. Patient admits to using opiates and Suboxone purchased off the street, states that this is "rare" that he uses this. He states that he has been using methamphetamine for the past year or so about 1-2 times a week. Claims that he smokes cigarettes. PAST PSYCHIATRIC HISTORY: Patient states that he has history of depression and opiate abuse. Patient denies being on any psychiatric medications. Patient denies any previous psychiatric hospitalizations. Patient was last seen by a psychiatrist at [facility] in 2020 was started on Zoloft however did not tolerate it well and also started on trazodone however felt that it was too strong for him. Patient denies any history of suicide attempts in the past. Past Medical History: No Reported History History of Any Multi-Drug Resistant Organisms: None Reported Past Surgical History: Back Surgery, Orthopedic Surgery Past Psychological History: No Psychological Hx Reported Smoking Status: Current every day smoker Past Alcohol Use History: None Reported Past Drug Use History: Methamphetamine, Prescription Drug Abuse Additional Drug Use History / Comment(s): pt reports that he became addicted to prescribed pain medications following his back surgery. pt states that he is currently taking Suboxone and that it is prescribed to him; pt has not had Suboxone filled since 2020. pt also reports that he smoked methamphetamine recently. pt states that he smoked a "bubble" a few days ago and that he uses "once every couple of weeks." ALLERGIES: as per EMR CHEMICAL DEPENDENCY HISTORY: as per HPI FAMILY PSYCHIATRIC/SUBSTANCE USE HISTORY: denies SOCIAL HISTORY: Patient was born and raised in [facility]. He states that he completed up to 11th grade in school. States that he has 2 kids, he is currently , he lives in his mother's house, he works doing industrial cleaning. States that he did go to assisted about 2 years ago for retail fraud.. MENTAL STATUS EXAM: General Appearance: Patient appears to be thin, unshaven, stated age is alert, directable, and attempts to cooperate. Patient appears to have poor hygiene and grooming. Behavior: Patient is seated without any agitated behavior. Attempts to cooperate Speech: Patient's speech is fluent and nonpressured. Hesitant and soft tone Mood/Affect: Patient reports their mood is depressed and anxious, affect is congruent and constricted. Suicidality/Homicidality: Patient denies having any homicidal ideation intent or plan. Denies any suicidal ideations intent or plan Perceptions: Patient denies any visual hallucinations and denies any auditory hallucinations Though content/process: There is no evidence of any delusional thought content and thought process is linear and goal-directed. [place], evasive at times Memory and concentration: AOX3, grossly intact for the purposes of this session. Can spell "WORLD" backwards Judgment and insight: poor STRENGTHS/WEAKNESSES: strength is that patient is resilient. Weakness is that patient has poor judgment and is impulsive INTELLECT: average IMPRESSIONS: Major depressive disorder, without psychotic features opioid use disorder methamphetamine abuse nicotine dependence PLAN: -Patient is admitted under voluntary status to MHU for stabilization of psychiatric symptoms and safety. Patient has signed adult voluntary form and medication consent and is placed in patient's chart. -Medications : lexapro increased to 20 mg daily for mood/anxiety, trazodone 50 m g qhs for insomnia/mood. -Ativan and Haldol PRN for agitation/aggression -Patient was counselled on substance abuse and desired to cut back on use -Patient was informed of the risks, benefits and side effects of the medication and patient verbally consented to taking the medications. Patient signed med consent form and was placed in chart. -Internal Medicine consult to perform medical evaluation and physical. -NRT - nicotine patch -SW on board for discharge planning. Encourage patient to participate in groups to work on coping skills. He states that he may be interested in going to rehab. 07/15/23 14:12
[2023-07-15] MEDS: ESCITALOPRAM 5 MG TAB PO SCH (16:52)
[2023-07-15] MEDS: traZODone HCL 50 MG TAB PO SCH (20:13)
[2023-07-16 02:04] LABS: Chol/HDL Ratio 3.63 Ratio; LDL Cholesterol,Calculated 114.9 mg/dL (0.0-131.0)
[2023-07-16] MEDS: ESCITALOPRAM 5 MG TAB PO SCH (08:07)
[2023-07-16] MEDS: NICOTINE 14MG/24HR PATCH TRANSDERM SCH (08:07)
--- NOTE | 2023-07-16 11:51 | P.PN ---
Progress Note - Text Progress Note Date: 07/16/23 Interval history: Patient was seen lying on his bed today and was agreeable to greater. He states that he is feeling a bit more refreshed today, states that he is able sleep well last night. He claims that he has been going only some groups. States that at this time he thought about going to rehab however is opting not to at this time. He states that he has sentencing coming up and would rather go after that rather than being arrested. He states that he spoke with his . He is able to return back to the house where and is not going to be sleeping in his car in a longer period he appears to be a bit more future oriented today, affect is improving. Claims that his mood and anxiety of also been improving. Claims that his appetite is mildly improving. At this time is denying any suicidal or homicidal ideations intent or plan. Denying any auditory or visual hallucinations. Denying any issues with medications no side effects. MENTAL STATUS EXAM: General Appearance: Patient appears to be thin, unshaven, stated age is alert, directable, and attempts to cooperate. Patient appears to have improving hygiene and grooming. Behavior: Patient is seated without any agitated behavior. Attempts to cooperate, improving Speech: Patient's speech is fluent and nonpressured. Mood/Affect: Patient reports their mood is improving mildly, affect is congruent Suicidality/Homicidality: Patient denies having any homicidal ideation intent or plan. Denies any suicidal ideations intent or plan Perceptions: Patient denies any visual hallucinations and denies any auditory hallucinations Though content/process: There is no evidence of any delusional thought content and thought process is linear and goal-directed. Memory and concentration: AOX3, grossly intact for the purposes of this session Judgment and insight: Improving mildly IMPRESSIONS: Major depressive disorder, without psychotic features opioid use disorder methamphetamine abuse nicotine dependence PLAN: -Patient is admitted under voluntary status to MHU for stabilization of psychiatric symptoms and safety. Patient has signed adult voluntary form and medication consent and is placed in patient's chart. -Medications : lexapro increased to 10 mg daily for mood/anxiety, trazodone 25 mg qhs for insomnia/mood. -Ativan and Haldol PRN for agitation/aggression -NRT - nicotine patch -SW on board for discharge planning. Encourage patient to participate in groups to work on coping skills. He states that he is not interested in going to rehab at this time. LIkely discharge tomorrow if patient is doing better
[2023-07-16] MEDS: traZODone HCL 50 MG TAB PO SCH (20:14)
[2023-07-17 06:47] VITALS: BP 103/58; PULSE 70; RESP 13; TEMP 97.2
[2023-07-17] MEDS: NICOTINE 14MG/24HR PATCH TRANSDERM SCH (08:13)
[2023-07-17] MEDS ORDERED: ESCITALOPRAM 10 MG TAB PO SCH (09:00)
--- NOTE | 2023-07-17 12:28 | P.DS ---
Providers Date of admission: 07/14/23 19:33 Expected date of discharge: 07/17/23 Attending physician: José Luis Howe MD Consults: 07/14/23 20:20 Consult Physician Routine Consulting Provider: Tobias Physician Consult Reason/Comments: H&P and medical Do you want consulting provider notified?: Yes Primary care physician: Stated None - Discharge Diagnosis(es) (1) Major depressive disorder without psychotic features Current Visit: Yes Status: Acute Priority: High (2) Opioid use disorder Current Visit: Yes Status: Acute Priority: Medium (3) Methamphetamine abuse Current Visit: Yes Status: Acute Priority: High Hospital Course: Admission HPI: Admission note was completed by speech writer "Patient is a 48-year-old male, currently living at his mom's house, he is currently , 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 Patient presented to the hospital on 03/17 complaining of depression and increasing suicidal thoughts, no plan. Patient has a history of prior suicide attempts. He is currently on Suboxone. Urine drug screen is positive for amphetamines and methamphetamine. Patient was seen today laying in his bed and agreeable to be brighter. He could have a constricted affect, states a feeling depressed and anxious. He claims that he told his that he was feeling suicidal, did not endorse a plan. He states that he has been from his , and has been fairly stressful for him. He states that they are in good terms and try to coparent their 2 kids. He states that his mother recently about 2 weeks ago from lung cancer, he still grieving from this. He states that she fairly suddenly and did not have much treatment. He states that "this is beating me up inside". He claims that the separation is affecting him more he believes. He claims that he has been feeling depressed for the past several months now, states that his sleep has been poor appetite is fair. Patient denies any current suicidal or homicidal ideations intent or plan. At this time patient denies any auditory or visual hallucinations. Patient denies any flight of ideas racing thoughts and increased in goal directed behavior. Patient admits to using opiates and Suboxone purchased off the street, states that this is "rare" that he uses this. He states that he has been using methamphetamine for the past year or so about 1-2 times a week. Claims that he smokes cigarettes." Hospital course: Upon admission to the unit patient was directable and agreeable to commence treatment and signed adult voluntary form . Patient got along well with other patients on the unit and followed unit protocol. Patient was compliant with the medications and denied any side effects throughout hospital course. Patient was started on Lexapro 10 mg daily for mood/anxiety, trazodone 25 mg daily at bedtime for insomnia/mood. Patient spoke of his stressors and engaged in therapy both group and individual. Patient was also seen by medical team for history and physical exam. Throughout the course of the hospitalization patient gradually improved with regards to mood, anxiety, suicidal thoughts, sleep and returned back to their baseline level of functioning. On the day of discharge patient denied any suicidal or homicidal ideations intent or plan denied any auditory or visual hallucinations. Patient endorsed wanting to live for his health and kids/family. The patient denied any access to guns or weapons. Patient denied any paranoia and did not endorse any delusions. Patient does have a significant history of substance abuse and was counseled on abstaining from all substances including alcohol and marijuana. Patient was offered however declined inpatient substance-abuse rehab. Patient elected to do outpatient substance use treatment program through [facility]. Patient was also counseled on the medications and need for regular compliance and was encouraged to follow-up with their outpatient appointment for mental health and also for primary care. Prior to discharge a family meeting will be arranged by social work lecturer to answer any questions and ensure safety upon discharge. Mental status exam: General Appearance: Patient appears to be thin, unshaven, stated age is alert, pleasant, and cooperative. Patient is in no acute distress and has improved hygiene and grooming Behavior: Patient is calmly seated without any agitated behavior. Speech: Patient's speech is fluent and nonpressured. Mood/Affect: Patient reports their mood is "better", affect is congruent and euthymic. Suicidality/Homicidality: Patient denies having any suicidal or homicidal ideation intent or plan. Perceptions: Patient denies any auditory or visual hallucinations. Though content/process: There is no evidence of any delusional thought content and thought process is linear and goal-directed. more future oriented Memory and concentration: AOX3, grossly intact for the purposes of this session. Can spell "WORLD" backwards correctly. Judgment and insight: improved with guarded prognosis Impression: Major depressive disorder without psychotic features Opioid use disorder Methamphetamine abuse Nicotine dependence Plan: -Continue with discharge today as patient has improved and stabilized psychiatrically and is not currently an imminent threat to himself and/or others. Patient will remain at chronically elevated risk for harm to self and/or others due to his impulsivity and polysubstance abuse. -Continue medications: Lexapro 10 mg daily for mood/anxiety, trazodone 25 mg daily at bedtime for insomnia/mood. -Patient was counseled on the need for medication compliance and appropriate follow-up at mental health and also primary care for medical issues. Patient verbalized understanding and agreed. -Social work to arrange for and conduct family meeting to ensure safety upon discharge and answer any questions/concerns. Social work also to arrange for patients follow up appointments with [facility]] for psychiatric care along with follow up with primary care provider. -Patient counseled on abstaining from recreational drugs and marijuana and alcohol. Was informed/educated on the adverse effects on their physical and mental health. [Patient verbally agreed and understood]. [Patient was offered substance abuse treatment however declined at this time.] -Patient was instructed to return to the hospital or seek immediate medical care if their psychiatric or medical symptoms do worsen or reoccur. Allergies Allergy/AdvReac Type Severity Reaction Status Date / Time Penicillins Allergy Rash/Hives Verified 07/14/23 15:20 Laboratory Results WBC 8.6 k/uL (3.8-10.6) 07/15/23 12:49 RBC 5.52 m/uL (4.30-5.90) 07/15/23 12:49 Hgb 15.2 gm/dL (13.0-17.5) 07/15/23 12:49 Hct 46.5 % (39.0-53.0) 07/15/23 12:49 MCV 84.3 fL (80.0-100.0) 07/15/23 12:49 MCH 27.6 pg (25.0-35.0) 07/15/23 12:49 MCHC 32.7 g/dL (31.0-37.0) 07/15/23 12:49 RDW 17.0 % (11.5-15.5) H 07/15/23 12:49 Plt Count 394 k/uL (150-450) 07/15/23 12:49 MPV 7.2 07/15/23 12:49 Neutrophils % 75 % 07/15/23 12:49 Lymphocytes % 18 % 07/15/23 12:49 Monocytes % 4 % 07/15/23 12:49 Eosinophils % 3 % 07/15/23 12:49 Basophils % 0 % 07/15/23 12:49 Neutrophils # 6.4 k/uL (1.3-7.7) 07/15/23 12:49 Lymphocytes # 1.5 k/uL (1.0-4.8) 07/15/23 12:49 Monocytes # 0.3 k/uL (0-1.0) 07/15/23 12:49 Eosinophils # 0.2 k/uL (0-0.7) 07/15/23 12:49 Basophils # 0.0 k/uL (0-0.2) 07/15/23 12:49 Anisocytosis Slight 07/15/23 12:49 Sodium 138 mmol/L (137-145) 07/15/23 12:49 Potassium 4.5 mmol/L (3.5-5.1) 07/15/23 12:49 Chloride 105 mmol/L (98-107) 07/15/23 12:49 Carbon Dioxide 25 mmol/L (22-30) 07/15/23 12:49 Anion Gap 8 mmol/L 07/15/23 12:49 BUN 10 mg/dL (9-20) 07/15/23 12:49 Creatinine 0.58 mg/dL (0.66-1.25) L 07/15/23 12:49 Est GFR (CKD-EPI)AfAm >90 (>60 ml/min/1.73 sqM) 07/15/23 12:49 Est GFR (CKD-EPI)NonAf >90 (>60 ml/min/1.73 sqM) 07/15/23 12:49 Glucose 91 mg/dL (74-99) 07/15/23 12:[address] Glu mg/dL 111 mg/dL 07/15/23 12:49 Hemoglobin A1c 5.5 % (<=6.0) 07/15/23 12:49 Calcium 9.6 mg/dL (8.4-10.2) 07/15/23 12:49 Total Bilirubin 1.1 mg/dL (0.2-1.3) 07/15/23 12:49 AST 23 U/L (17-59) 07/15/23 12:49 ALT 19 U/L (4-49) 07/15/23 12:49 Alkaline Phosphatase 48 U/L (38-126) 07/15/23 12:49 Total Protein 6.8 g/dL (6.3-8.2) 07/15/23 12:49 Albumin 4.3 g/dL (3.5-5.0) 07/15/23 12:49 Triglycerides 92.00 mg/dL (0.00-149.00) 07/15/23 12:49 Cholesterol 184.00 mg/dL (0.00-200.00) 07/15/23 12:49 LDL Cholesterol, Calc 114.9 mg/dL (0.0-131.0) 07/15/23 12:49 VLDL Cholesterol, Calc 18.40 mg/dL (5.00-40.00) 07/15/23 12:49 HDL Cholesterol 50.70 mg/dL (40.00-60.00) 07/15/23 12:49 Cholesterol/HDL Ratio 3.63 Ratio 07/15/23 12:49 TSH 0.311 mIU/L (0.465-4.680) L 07/15/23 12:49 Urine Opiates Screen Not Detected (NotDetected) 07/14/23 01:23 Ur Oxycodone Screen Not Detected (NotDetected) 07/14/23 01:23 Urine Methadone Screen Not Detected (NotDetected) 07/14/23 01:23 Ur Propoxyphene Screen Not Detected (NotDetected) 07/14/23 01:23 Ur Barbiturates Screen Not Detected (NotDetected) 07/14/23 01:23 U Tricyclic Antidepress Not Detected (NotDetected) 07/14/23 01:23 Ur Phencyclidine Scrn Not Detected (NotDetected) 07/14/23 01:23 Ur Amphetamines Screen Detected (NotDetected) H 07/14/23 01:23 U Methamphetamines Scrn Detected (NotDetected) H 07/14/23 01:23 U Benzodiazepines Scrn Not Detected (NotDetected) 07/14/23 01:23 Urine Cocaine Screen Not Detected (NotDetected) 07/14/23 01:23 U Marijuana (THC) Screen Not Detected (NotDetected) 07/14/23 01:23 Coronavirus (PCR) Not Detected (Not Detectd) 07/14/23 17:27 Vital Signs Temp 97.2 F L 07/17/23 06:43 Pulse 70 07/17/23 06:43 Resp 13 07/17/23 06:43 BP 103/58 07/17/23 06:43 Pulse Ox 99 07/16/23 07:06 FiO2 Patient Condition at Discharge: Stable Plan - Discharge Summary Discharge Rx Participant: No New Discharge Prescriptions: New traZODone HCL [Desyrel] 25 mg PO HS PRN 30 Days #15 tab PRN Reason: Insomnia Nicotine 14Mg/24Hr Patch [Habitrol] 1 patch TRANSDERM DAILY 14 Days #14 patch Escitalopram [Lexapro] 10 mg PO DAILY 30 Days #30 tab Discharge Medication List Escitalopram [Lexapro] 10 mg PO DAILY 30 Days #30 tab 07/17/23 [Rx] Nicotine 14Mg/24Hr Patch [Habitrol] 1 patch TRANSDERM DAILY 14 Days #14 patch 07/17/23 [Rx] traZODone HCL [Desyrel] 25 mg PO HS PRN 30 Days #15 tab 07/17/23 [Rx] Follow up Appointment(s)/Referral(s): [facility] [Outside] - 1 Week [facility] [Outside] - 07/21/23 12:30 pm (with Erica Also, if interested in rehab, you must complete a screening with [facility] to get set up. .) [facility] [NON-STAFF] - 1 Week Patient Instructions/Handouts: How to Stop Smoking (DC), Depression (DC) Activity/Diet/Wound Care/Special Instructions: Avoid the use of street drugs and alcohol. Take all medications as prescribed. When you are in need of refills on your medications, please contact your medical provider and/or outpatient psychiatrist/provider to have this done. Please go to your scheduled outpatient appointment for aftercare treatment. If symptoms return or become worse, call the crisis line at and/or go to the nearest emergency room for evaluation. National Suicide Hotline 988. Discharge Disposition: HOME SELF-CARE
== END 2023-07-17 12:08 | disposition home or self-care (01) | DRG 754 ==
LOC: EC 00:40 → 3MHU 19:33
PROVIDERS: ADMIT Psychiatry & Neurology Psychiatry; ATTEND Psychiatry & Neurology Psychiatry
DX: F32.9 Major depressive disorder, single episode, unspecified (principal); R45.851 Suicidal ideations; F11.10 Opioid abuse, uncomplicated; F15.10 Other stimulant abuse, uncomplicated; Z11.52 Encounter for screening for COVID-19; F41.9 Anxiety disorder, unspecified; G47.00 Insomnia, unspecified; F17.210 Nicotine dependence, cigarettes, uncomplicated; Z71.6 Tobacco abuse counseling; Z59.02 Unsheltered homelessness; Z63.5 Disruption of family by separation and divorce; Z91.51 Personal history of suicidal behavior; Z71.51 Drug abuse counseling and surveillance of drug abuser; Z71.41 Alcohol abuse counseling and surveillance of alcoholic; Z88.0 Allergy status to penicillin
CPT/HCPCS: 80053; 80061; 80306; 82075; 83036; 84443; 85025; 87635; 99285

== ENCOUNTER 2024-12-25 19:44 | Emergency (ER) | payer OTHER ==
[2024-12-25 19:48] VITALS: BP 146/87; PULSE 68; RESP 18; TEMP 97.3
--- NOTE | 2024-12-25 20:07 | ED ---
Skin/Abscess/FB HPI - General Chief complaint: Skin/Abscess/Foreign Body Stated complaint: Rash Time Seen by Provider: 12/25/24 19:54 Source: patient, RN notes reviewed Mode of arrival: ambulatory Limitations: no limitations - History of Present Illness Initial comments: This is a 49-year-old male presenting for bug bites on arms and face for the past several days. Patient endorses associated itching without significant pain. Patient states he is unsure of cause with no known infestation. Patient endorses owning pets. Denies fever, chills, fatigue, body aches, chest pain, dyspnea. MD complaint: insect bite/sting Onset/Timin -: days(s) Location: face, chest, LUE, RUE, L hand, R hand, LLE, RLE Associated symptoms: itching - Related Data Previous Rx's Medication Instructions Recorded Escitalopram [Lexapro] 10 mg PO DAILY 30 Days #30 tab 07/17/23 Nicotine 14Mg/24Hr Patch [Habitrol] 1 patch TRANSDERM DAILY 14 Days 07/17/23 #14 patch traZODone HCL [Desyrel] 25 mg PO HS PRN 30 Days #15 tab 07/17/23 Permethrin 5% Cream [Elimite] 1 applic TOPICAL ONCE #60 gram 12/25/24 Allergies Allergy/AdvReac Type Severity Reaction Status Date / Time No Known Allergies Allergy Verified 12/25/24 19:49 Review of Systems ROS Statement: Those systems with pertinent positive or pertinent negative responses have been documented in the HPI. ROS Other: All systems not noted in ROS Statement are negative. Past Medical History Past Medical History: No Reported History History of Any Multi-Drug Resistant Organisms: None Reported Past Surgical History: Back Surgery, Orthopedic Surgery Past Psychological History: No Psychological Hx Reported Smoking Status: Current every day smoker Past Alcohol Use History: None Reported Past Drug Use History: Methamphetamine, Prescription Drug Abuse General Exam Limitations: no limitations General appearance: alert, in no apparent distress Head exam: Present: atraumatic, normocephalic, normal inspection Eye exam: Present: normal appearance, PERRL, EOMI. Absent: scleral icterus, conjunctival injection, periorbital swelling ENT exam: Present: normal exam, mucous membranes moist Neck exam: Present: normal inspection. Absent: tenderness, meningismus, lymphadenopathy Respiratory exam: Present: normal lung sounds bilaterally. Absent: respiratory distress, wheezes, rales, rhonchi, stridor Cardiovascular Exam: Present: regular rate, normal rhythm, normal heart sounds. Absent: systolic murmur, diastolic murmur, rubs, gallop, clicks GI/Abdominal exam: Present: soft, normal bowel sounds. Absent: distended, tenderness, guarding, rebound, rigid Extremities exam: Present: normal inspection, full ROM, normal capillary refill. Absent: tenderness, pedal edema, joint swelling, calf tenderness Back exam: Present: normal inspection Neurological exam: Present: alert, oriented X3, CN II-XII intact Psychiatric exam: Present: normal affect, normal mood Skin exam: Present: warm, dry, intact, normal color, other (Several solitary erythematous papules noted on bilateral arms/hands and face with burrowing noted between 3rd and 4th digit on webbing of left hand). Absent: rash Course Vital Signs 12/25/24 19:45 Temperature 97.3 F L Pulse Rate 68 Respiratory 18 Rate Blood Pressure 146/87 O2 Sat by Pulse 99 Oximetry Medical Decision Making - Medical Decision Making Was pt. sent in by a medical professional or institution (, PA, PROJECTION ENGINEER, urgent care, hospital, or correction...) When possible be specific @ -No Did you speak to anyone other than the patient for history (EMS, parent, family, police, friend...)? What history was obtained from this source @ -No Did you review nursing and triage notes (agree or disagree)? Why? @ -I reviewed and agree with nursing and triage notes Were old charts reviewed (outside hosp., previous admission, EMS record, old EKG, old radiological studies, urgent care reports/EKG's, correction records)? Report findings @ -No old charts were reviewed Differential Diagnosis (chest pain, altered mental status, abdominal pain women, abdominal pain men, vaginal bleeding, weakness, fever, dyspnea, syncope, headache, dizziness, GI bleed, back pain, seizure, CVA, palpatations, mental health, musculoskeletal)? @ -Scabies, bedbugs, mosquito bites, fleas, spider bite, tick bite, this is not an exhaustive list EKG interpreted by me (3pts min.). @ -Not done X-rays interpreted by me (1pt min.). @ -None done CT interpreted by me (1pt min.). @ -None done U/S interpreted by me (1pt. min.). @ -None done What testing was considered but not performed or refused? (CT, X-rays, U/S, labs)? Why? @ -None What meds were considered but not given or refused? Why? @ -None Did you discuss the management of the patient with other professionals (professionals i.e. Dr., PA, PROJECTION ENGINEER, lab, RT, psych nurse, socially responsible investment adviser, tube buffer, teacher, traffic officer, community case manager)? Give summary @ -No Was smoking cessation discussed for >3mins.? @ -No Was critical care preformed (if so, how long)? @ -No Were there social determinants of health that impacted care today? How? (Homelessness, low income, unemployed, alcoholism, drug addiction, transportation, low edu. Level, literacy, decrease access to med. care, retirement, rehab)? @ -No Was there de-escalation of care discussed even if they declined (Discuss DNR or withdrawal of care, Hospice)? DNR status @ -No What co-morbidities impacted this encounter? (DM, HTN, Smoking, COPD, CAD, Cancer, CVA, ARF, Chemo, Hep., AIDS, mental health diagnosis, sleep apnea, morbid obesity)? @ -None Was patient admitted / discharged? Hospital course, mention meds given and route, prescriptions, significant lab abnormalities, going to OR and other pertinent info. @ -Based on physical exam findings, patient presumed to have scabies infestation. Provided permethrin cream with additional permethrin cream sent to patient's pharmacy. Advised head to toe covering tonight before bed with shower in morning. Advise repeat process in 1 week. Advised contact family life counselor for fumigation of house to prevent recurrence. Advised follow-up with PCP. Discussed patient with Dr. Linder. Undiagnosed new problem with uncertain prognosis? @ -No Drug Therapy requiring intensive monitoring for toxicity (Heparin, Nitro, Insulin, Cardizem)? @ -No Were any procedures done? @ -No Diagnosis/symptom? @ -Scabies infestation Acute, or Chronic, or Acute on Chronic? @ -Acute Uncomplicated (without systemic symptoms) or Complicated (systemic symptoms)? @ -Uncomplicated Side effects of treatment? @ -No Exacerbation, Progression, or Severe Exacerbation? @ -No Poses a threat to life or bodily function? How? (Chest pain, [place], [place], pneumonia, PE, COPD, DKA, ARF, appy, cholecystitis, CVA, Diverticulitis, Homicidal, Suicidal, threat to staff... and all critical care pts) @ -No Disposition Clinical Impression: Scabies infestation Disposition: HOME SELF-CARE Condition: Good Instructions (If sedation given, give patient instructions): Scabies (ED) Additional Instructions: Contact family life counselor to fumigate house. Follow-up with PCP/dermatology if sympt oms do not improve or worsen. Prescriptions: Permethrin 5% Cream [Elimite] 1 applic TOPICAL ONCE #60 gram Is patient prescribed a controlled substance at d/c from ED?: No Referrals: None,Stated [Primary Care Provider] - 1-2 days Yolie Redding MD [Doctor of Osteopathic Medicine] - 1-2 days Greg Gomez MD [STAFF PHYSICIAN] - 1-2 days Time of Disposition: 20:07
[2024-12-25] MEDS: PERMETHRIN 5% CREAM 60 GM TUBE TOPICAL ONE (20:28)
== END 2024-12-25 20:28 | disposition home or self-care (01) ==
LOC: EC 19:44
DX: S40.862A Insect bite (nonvenomous) of left upper arm, initial encounter (principal); S40.861A Insect bite (nonvenomous) of right upper arm, initial encounter; S00.86XA Insect bite (nonvenomous) of other part of head, initial encounter; B86 Scabies; F17.200 Nicotine dependence, unspecified, uncomplicated; W57.XXXA Bitten or stung by nonvenomous insect and other nonvenomous arthropods, initial encounter
CPT/HCPCS: 99282